=== PATIENT | female | born 1950 | race Hispanic/Latino ===

== ENCOUNTER → 2020-11-15 | Outpatient (CLI) | payer OTHER | END | disposition home or self-care (01) | LOC: OIH 09:58 | PROVIDERS: ATTEND Internal Medicine | DX: J84.10 Pulmonary fibrosis, unspecified (principal); I10 Essential (primary) hypertension; Z86.19 Personal history of other infectious and parasitic diseases | CPT/HCPCS: 71046 ==

== ENCOUNTER → 2023-05-21 | Outpatient (CLI) | payer OTHER | END | disposition home or self-care (01) | LOC: RAH 09:58 | PROVIDERS: ATTEND Internal Medicine | DX: J44.9 Chronic obstructive pulmonary disease, unspecified (principal); R06.02 Shortness of breath | CPT/HCPCS: 71046 ==

== ENCOUNTER → 2024-01-16 | Outpatient (CLI) | payer OTHER | END | disposition home or self-care (01) | LOC: RAH 11:54 | PROVIDERS: ATTEND Internal Medicine | DX: J06.9 Acute upper respiratory infection, unspecified (principal); J18.9 Pneumonia, unspecified organism | CPT/HCPCS: 71046 ==

== ENCOUNTER → 2025-04-05 | Outpatient (CLI) | payer OTHER ==
[~2025-04-05] MED LIST: ALBU2.5V2 IH; ATOR40TA71; BISA-151 PO; CAND16TA28 PO; FLUT16H NASAL; FURO20TA4 PO; GLIM2TAB30 PO; HYDR-4060 PO; IPRA3AMP24 ID; ISOS30TA92 PO; LORA10TA7 PO; MECL-226 PO; MELO-108 PO; METO-408 PO; MONT-39 PO; NITR0.4T50 SL; POTA-202 PO; PRED20B PO; TIRZ2.5P INJ
--- NOTE | 2025-04-05 10:56 | HMCIMG ---
Exam Type: CHEST 2VWS Clinical Information: Assess for atherosclerosis of Aorta Comparison: None Findings: There is cardiomegaly and there is status post median sternotomy. The lungs are clear of infiltrates. Impression: Clear lungs.
== END | disposition home or self-care (01) ==
LOC: RAH 09:52
PROVIDERS: ATTEND Internal Medicine
DX: J18.9 Pneumonia, unspecified organism (principal); I51.7 Cardiomegaly; Z98.890 Other specified postprocedural states
CPT/HCPCS: 71046

== ENCOUNTER 2025-06-05 00:25 | Emergency (ER) | payer OTHER, MEDICARE ==
[~2025-06-05] VITALS: Ht 152.4 cm; Wt 74.8 kg
[~2025-06-05 00:25] MED LIST changes: -ALBU2.5V2 IH; -ATOR40TA71; +ATOR40TA71 PO; -BISA-151 PO; -CAND16TA28 PO; +FLUT15.845 NS; -FLUT16H NASAL; -FURO20TA4 PO; -GLIM2TAB30 PO; -HYDR-4060 PO; -IPRA3AMP24 ID; -ISOS30TA92 PO; -LORA10TA7 PO; -MELO-108 PO; -METO-408 PO; +MIDO5TAB4 PO; -NITR0.4T50 SL; -POTA-202 PO; -PRED20B PO; -TIRZ2.5P INJ
--- NOTE | 2025-06-05 00:28 | ERN ---
ED Note History of Present Illness Stated Complaint: ABD PAIN, CONSTIPATION patient comes because she has been constipated. Over these last week. Albin is still passingdaily Chief Complaint: Abdominal Pain Time Seen by MD: 00:26 Allergies: Coded Allergies: Penicillins (Unverified Allergy, Unknown, 06/14/24) Home Meds Reported Medications Midodrine HCl (Midodrine HCl) 5 Mg Tablet, 1 TAB PO TID for SBP<110 for 30 Days, #90 TAB 0 Refills 04/21/25 Fluticasone Propionate (Fluticasone Propionate) 50 Mcg/Actuation [place].susp, 2 SPRAY NS DAILY, #16 GM 0 Refills 04/16/25 Meclizine HCl (Meclizine HCl) 12.5 Mg Tablet, 12.5 MG PO TID, TAB 04/16/25 Montelukast Sodium (Montelukast Sodium) 10 Mg Tablet, 1 TAB PO DAILY for 30 Days, #30 TAB 0 Refills 04/16/25 Atorvastatin Calcium (Atorvastatin Calcium) 40 Mg Tablet, 1 TAB PO HS for 30 Days, #30 TAB 0 Refills 04/16/25 Past Medical History Past Medical History: CHF, COPD, Diabetes-Type II, High Cholesterol, Pneumonia, Other Additional Past Medical Hx: KIDNEY DISEASE Surgical History: Hysterectomy, Other Surgical History Other: HEART VALVE SX Review of System Dictation Constitutional: Negative for fever,chills, and weight loss Eyes: Negative for injury, pain,redness, and discharge ENT: Negative for injury,pain or swelling Cardiovascular: Negative for chest pain, palpitations, and edema Respiratory: Negative for shortness of breath, cough, and wheezing, Abdomen/GI: Negative for abdominal pain, nausea, vomiting, diarrhea, and constipation Back: Negative for injury and pain : Negative for injury, bleeding and discharge MS/Extremity: Negative for injury and deformity Skin: Negative for rash, and discoloration Neuro: Negative for headache, weakness, numbness, tingling, and seizure Psych: Negative for suicide ideation, homicidal ideation, and hallucinations Initial Vital Sign VS Vital Signs Date Time Temp Pulse Resp B/P (MAP) Pulse Ox O2 Delivery O2 Flow Rate FiO2 06/05/25 00:26 97.2 72 16 175/64 96 Room Air Physical Exam Dictation General: awake, alert, NAD Head/Face: Normocephalic, atraumatic Eyes: PERRL, EOMI, vision at baseline ENT: oral cavity clear, TMs clear, no signs of infection Neck: Trachea midline, supple, no nuchal rigidity Cardiovascular: RRR, normal S1/S2, No MRGs, no JVD Respiratory: CTAB, no respiratory distress, No rales or wheezes Abdomen: Soft, non-tender, non-distended, normal bowel sounds, no guarding or rebound. Skin: Warm, dry, normal turgor, no rash MS/Extremity: Pulses equal, no cyanosis, neurovascular intact, FROM Neuro: COAx4, GCS 15, strength 5/5, CN 2-12 intact, normal cerebellar exam, normal gait, Psych: Normal behavior, mood, and affect normal Results (Laboratory/Radiology) Laboratory/Radiology Laboratory Tests Test 06/05/25 00:43 White Blood Count 9.5 K/uL (4.8-10.8) Red Blood Count 5.11 MIL/uL (4.00-5.50) Hemoglobin 14.8 g/dL (12.0-16.0) Hematocrit 46.3 % (36-48) Mean Corpuscular Volume 90.6 fL (79-99) Mean Corpuscular Hemoglobin 29.0 pg (27.0-33.0) Mean Corpuscular Hemoglobin Concent 32.0 g/dL (32.0-36.0) Red Cell Distribution Width 13.8 % (11.0-15.5) Platelet Count 168 K/uL (130-400) Mean Platelet Volume 12.1 fL (7.5-10.5) H Immature Granulocyte % (Auto) 0.4 % (0-1) Neutrophils (%) (Auto) 68.5 % (40.0-77.0) Lymphocytes (%) (Auto) 22.1 % (21.0-51.0) Monocytes (%) (Auto) 7.1 % (3.0-13.0) Eosinophils (%) (Auto) 1.5 % (0.0-8.0) Basophils (%) (Auto) 0.4 % (0.0-5.0) Neutrophils # (Auto) 6.5 K/uL (1.8-7.7) Lymphocytes # (Auto) 2.1 K/uL (1.0-4.8) Monocytes # (Auto) 0.7 K/uL (0.1-1.0) Eosinophils # (Auto) 0.14 K/uL (0.00-0.70) Basophils # (Auto) 0.04 K/uL (0.00-0.20) Absolute Immature Granulocyte (auto 0.04 K/uL (0-1) Nucleated Red Blood Cells 0.0 % (0.0-0.19) Sodium Level 142 mmol/L (136-145) Potassium Level 4.0 mmol/L (3.5-5.1) Chloride Level 106 mmol/L (101-111) Carbon Dioxide Level 31 mmol/L (21-32) Blood Urea Nitrogen 14 mg/dL (7-18) Creatinine 1.1 mg/dL (0.5-1.0) H Glomerular Filtration Rate Calc 52 mL/min (>90) Random Glucose 129 mg/dL (70-105) H Total Calcium 8.7 mg/dL (8.5-10.1) Total Bilirubin 0.8 mg/dL (0.2-1.0) Aspartate Amino Transf (AST/SGOT) 80 U/L (10-37) H Alanine Aminotransferase (ALT/SGPT) 44 U/L (12-78) Alkaline Phosphatase 116 U/L (50-136) Troponin I High Sensitivity 7 ng/L (4-50) Total Protein 7.7 g/dL (6.0-8.3) Albumin 3.1 g/dL (3.5-5.0) L Lipase 82 U/L (16-77) H ED Course ED Course Orders Procedure Category Date Status Time Cbc With Differential LAB 06/05/25 Complete 00:27 Comprehensive LAB 06/05/25 Complete Metabolic Panel 00:27 Troponin I High LAB 06/05/25 Complete Sensitivity 00:27 Urinalysis Profile LAB 06/05/25 Logged 00: 12 Lead Ekg Tracing- EKG 06/05/25 Complete Technical 00:27 Lactated Ringers PHA 06/05/25 Complete 1000ml (Lactated 00:30 Morphine 4mg Syg PHA 06/05/25 Complete (Morphine 4mg Syg) 00:30 Ondansetron 4mg Inj PHA 06/05/25 Complete (Zofran 4mg Inj) 00:30 Ct Abdomen/Pelvis W/O CT 06/05/25 Resulted Contrast 00:27 Chest 1vw RAD 06/05/25 Resulted 00:27 Lipase LAB 06/05/25 Complete 00:27 Magnesium Citrate PHA 06/05/25 Complete (Magnesium Citrate) 03:30 *Nursing CPOE 06/05/25 Transmitted Communication: 03:24 Glycerin Adult Supp PHA 06/05/25 In Process (Glycerin Adult Supp 04:00 Current Medications Medications (Trade) Dose Ordered Sig/Carlos Route PRN Reason Start Time Stop Time Status Last Admin Dose Admin Glycerin (Glycerin Adult Supp) 1 supp ONCE ONCE RC 06/05/25 04:00 06/05/25 04:01 Lactated Ringer's 1,000 ml @ 0 mls/hr ONCE ONCE IV 06/05/25 00:30 06/05/25 00:31 DC 06/05/25 01:12 Magnesium Citrate (Magnesium Citrate) 296 ml ONCE ONCE PO 06/05/25 03:30 06/05/25 03:35 DC Morphine Sulfate (morPHINE 4MG SYG) 4 mg ONCE ONCE IVP 06/05/25 00:30 06/05/25 00:33 DC 06/05/25 01:13 Ondansetron HCl (zoFRAN 4MG INJ) 4 mg ONCE ONCE IVP 06/05/25 00:30 06/05/25 00:31 DC 06/05/25 01:12 Vital Signs Date Time Temp Pulse Resp B/P (MAP) Pulse Ox O2 Delivery O2 Flow Rate FiO2 06/05/25 00:26 97.2 72 16 175/64 96 Room Air Medical Decision Making MDM MDM: Differential diagnosis: Rationale: Tests considered and ordered secondary to shared decision making include: Previous outside records reviewed: Old ER visits. Risk of complication and/or morbidity or mortality of patient management: None Medications-Per medication reconciliation Need for hospitalization: Patient does not meet criteria for hospitalization. Need for emergency major/minor surgery: No There are no social concerns with this patient. Prescription drug management Prescriptions will include symptomatic care Patient's prior external medical records from other ER visits were reviewed by me as indicated. Prior testing and results from previous visits were reviewed. Prior tests were taken into account with medical decision making and resource utilization, independent historian/historians were used to obtain complete medical history. I independently interpreted the test that were performed, results were reviewed by me and considered findings on radiology if ordered. Medical management and examination interpretation discussions were had by me with other qualified healthcare professionals as indicated for the patient's care. DX & DISP Disposition: Discharge Departure Impression: Primary Impression: Constipation Condition: Stable Scripts Lactulose (Lactulose) 10 Gram/15 Ml Solution 30 ML PO BID for constipation, #500 ML 0 Refills Prov: ADRI ORTIZ MD 06/05/25 Polyethylene Glycol 3350 (Miralax) 17 Gram Powd.pack 1 PACKET PO DAILY for constipation for 2 Days, #2 PACKET 0 Refills dissolve in water Prov: ADRI ORTIZ MD 06/05/25 Docusate Sodium (Colace) 100 Mg Capsule 100 MG PO TID for constipation, #30 CAP 0 Refills Prov: ADRI ORTIZ MD 06/05/25 Referrals: STEPHANIE MAURER MD (PCP) ADRI ORTIZ MD Jun 05, 2025 00:28
--- NOTE | 2025-06-05 00:36 | EKG ---
[facility] Test Date: 2025-06-05 Test Time: 00:30:28 Pat Name: CHARU JONES Department: ED Room: Gender: F [employer]: [id number] : 1950 Requested By: ADRI ORTIZ Order Number: [id number] Reading MD: Chato Wilder Measurements Intervals [place] Rate: 65 P: 244 MD: 109 QRS: 66 QRSD: 81 T: 84 QT: 400 QTc: 416 Interpretive Statements Sinus or ectopic atrial rhythm Compared to ECG 06/14/2024 05:14:34 Ectopic atrial rhythm now present Sinus rhythm no longer present Atrial premature complex(es) no longer present Atrial abnormality no longer present Early repolarization no longer present Possible ischemia no longer present Electronically Signed On 06-06-2025 00:06:56 CDT by Chato Wilder Please click the below link to view image of tracing.
[2025-06-05 00:54] LABS: IMMATURE GRANULOCYTE ABSOLUTE 0.04 K/uL (0-1); NUCLEATED RED BLOOD CELLS 0.0 % (0.0-0.19); PLATELET COUNT (AUTO) 168 K/uL (130-400); RED BLOOD CELL COUNT(AUTO) 5.11 MIL/uL (4.00-5.50); RED CELL DISTRIBUTION WIDTH 13.8 % (11.0-15.5); WHITE BLOOD COUNT (AUTO) 9.5 K/uL (4.8-10.8)
[2025-06-05 01:06] LABS: CREATININE 1.1 mg/dL (0.5-1.0); GLOMERULAR FILTR. RATE CALC 52.0 mL/min (>90); GLUCOSE,RANDOM 129.0 mg/dL (70-105); SODIUM SERUM 142.0 mmol/L (136-145); UREA NITROGEN, BLOOD 14.0 mg/dL (7-18)
[2025-06-05 01:11] LABS: ASPARTATE AMINOTRANSFERASE 80.0 U/L (10-37); TOTAL PROTEIN, SERUM 7.7 g/dL (6.0-8.3)
[2025-06-05] MEDS: LACTATED RINGERS 1000ML 1,000 ML IV ONE (01:12)
--- NOTE | 2025-06-05 01:19 | HMCIMG ---
EXAM: CR Chest, 1 view. CLINICAL HISTORY: Cough. COMPARISON: X-ray chest dated 04/16/25. FINDINGS: Redemonstrated post-sternotomy status. Stable metallic implants in place overlying the left hemithorax. The lungs show no infiltrate or other acute findings. No pleural effusion or pneumothorax. The cardiomediastinal silhouette is within normal limits. Mild calcification of the aortic knuckle. No acute osseous abnormality. IMPRESSION: No acute cardiopulmonary pathology is evident. Redemonstrated post-sternotomy status. Stable metallic implants in place overlying the left hemithorax. No gross interval changes. /[place]
--- NOTE | 2025-06-05 02:10 | HMCIMG ---
EXAM: CT Abdomen and Pelvis without IV contrast. CLINICAL HISTORY: Pain. TECHNIQUE: Thin collimated axial CT images of the abdomen and pelvis were obtained with sagittal and coronal reformatted images also submitted. CT scan done according to ALARA (As Low As Reasonably Achievable). CONTRAST: None. COMPARISON: None. FINDINGS: Mild right basilar atelectasis. Post-sternotomy changes with a metallic implant in the region of the interventricular septum. Moderate calcification of the aortic and mitral annulus. There is no focal abnormality appreciated within the liver, pancreas, spleen, adrenals, or kidneys. Multiple tiny calculi with sludge in the dependent regions of the gallbladder. There is no obvious bowel wall thickening. Bowel loops are normal in caliber without evidence of obstruction or ileus. The appendix is normal. Fecal loading of the large bowel loops. Uncomplicated colonic diverticulosis. There is no abnormality within the urinary bladder. Status post hysterectomy and bilateral salpingo-oophorectomy. Mild calcific atheromatous plaques in the abdominal aorta. No significant lymphadenopathy. No free fluid. Midline supraumbilical ventral wall hernia with an abdominal wall defect of 3.8 cm and herniation of mesenteric fat and transverse colon. No obvious incarceration or obstruction. Divarication of recti with a questionable small umbilical hernia with impending herniation of the ileal loops. Postoperative clips in the lower abdomen. There is no acute osseous abnormality. Mild degenerative osseous changes. IMPRESSION: 1. Supraumbilical ventral hernia measuring 3.8 cm containing mesenteric fat and transverse colon, without evidence of incarceration or obstruction. 2. Divarication of recti with possible small umbilical hernia with impending herniation of ileal loops. 3. Cholelithiasis. 4. Post-sternotomy changes with metallic implant in the interventricular septum and moderate calcification of the aortic and mitral annulus. 5. Status post hysterectomy and bilateral salpingo-oophorectomy. 6. Mild constipation. Uncomplicated colonic diverticulosis. /[place]
[2025-06-05] MEDS ORDERED: POLY17PO4 PO (03:43)
[2025-06-05] MEDS ORDERED: DOCU-116 PO (03:43)
[2025-06-05] MEDS ORDERED: LACT10SO85 PO (03:43)
[2025-06-05] MEDS: GLYCERIN ADULT SUPP.RECT RC ONE (04:17)
[2025-06-05] MEDS: MAGNESIUM CITRATE 296 ML SOLUTION PO ONE (04:18)
[2025-06-05 05:07] VITALS: BP 142/70; PULSE 68; RESP 18; TEMP 98.4; O2SAT 96
== END 2025-06-05 05:17 | disposition home or self-care (01) ==
LOC: EDH 00:25
DX: K59.00 Constipation, unspecified (principal); E11.9 Type 2 diabetes mellitus without complications; E78.00 Pure hypercholesterolemia, unspecified; I50.9 Heart failure, unspecified; J44.9 Chronic obstructive pulmonary disease, unspecified; Z79.899 Other long term (current) drug therapy; Z88.0 Allergy status to penicillin; Z90.710 Acquired absence of both cervix and uterus; Z90.722 Acquired absence of ovaries, bilateral
CPT/HCPCS: 99285; 74176; 96374; 71045; 96361; 96375; 84484; 80053; 83690; 85025; 36415; 93005; J7120; J2405; J2270